=== PATIENT | male | born 1980 | race Caucasian/White ===

== ENCOUNTER 2024-04-14 14:31 | Outpatient (CLI) | payer OTHER | END 2024-04-14 14:32 | disposition home or self-care (01) | LOC: CSHRAD 14:31 | PROVIDERS: ATTEND Student in an Organized Health Care Education/Training Program | DX: J44.9 Chronic obstructive pulmonary disease, unspecified (principal) | CPT/HCPCS: 94060; 94664; 94726; 94729; 94760 ==

== ENCOUNTER 2024-07-22 09:21 | Outpatient (CLI) | payer OTHER | END 2024-07-22 09:22 | disposition home or self-care (01) | LOC: CSHCT 09:21 | PROVIDERS: ATTEND Internal Medicine | DX: G47.30 Sleep apnea, unspecified (principal); R91.1 Solitary pulmonary nodule; R91.8 Other nonspecific abnormal finding of lung field | CPT/HCPCS: 71250 ==

== ENCOUNTER 2024-07-31 08:20 | Outpatient (CLI) | payer OTHER | END 2024-07-31 08:21 | disposition home or self-care (01) | LOC: CSHLAB 08:20 | PROVIDERS: ATTEND Specialist | DX: Z01.818 Encounter for other preprocedural examination (principal); J34.2 Deviated nasal septum; J34.3 Hypertrophy of nasal turbinates; J32.4 Chronic pansinusitis | CPT/HCPCS: 93005; 93010 ==

== ENCOUNTER 2024-08-07 07:15 | Day surgery (SDC) | payer OTHER ==
[2024-07-31 08:57] VITALS: BMI 39.9
[2024-08-07] MEDS ORDERED: AFRIN NASAL MIST 15 ML BOT ONE ×2 (07:56→08:34)
[2024-08-07] MEDS ORDERED: Triple Antibiotic Oint 1 GM Packet ONE (08:34)
[2024-08-07] MEDS ORDERED: Lidocaine 1% w/Epinephrine 1:200K 30 ML VIAL ONE (08:35)
[2024-08-07] MEDS ORDERED: PROPOFOL 20 ML ONE ×2 (08:43→10:18)
[2024-08-07] MEDS ORDERED: Lidocaine 1% PF 5 ML VIAL ONE (08:43)
[2024-08-07] MEDS ORDERED: Sodium Chloride 0.9% 10 ML ONE (08:44)
[2024-08-07] MEDS ORDERED: fentaNYL 50 mcg/mL 1 mL Vial ONE ×3 (08:46→11:16)
[2024-08-07] MEDS ORDERED: Ondansetron PF 4 MG/2 ML Vial ONE (08:47)
[2024-08-07] MEDS ORDERED: Dexamethasone 20 MG/5 ML VIAL ONE (08:47)
[2024-08-07] MEDS ORDERED: HYDROcodone/Acetaminophen 5/325 mg Tablet ONE (12:11)
== END 2024-08-07 12:40 | disposition home or self-care (01) ==
LOC: CSHSDC 07:15
PROVIDERS: ATTEND Specialist
PROC: 09BM8ZZ Excision of Nasal Septum, Via Natural or Artificial Opening Endoscopic (ICD-10-PCS; principal; 2024-08-07)
DX: J34.2 Deviated nasal septum (principal); J34.3 Hypertrophy of nasal turbinates; J32.4 Chronic pansinusitis; I10 Essential (primary) hypertension; J45.909 Unspecified asthma, uncomplicated; E66.9 Obesity, unspecified; Z68.41 Body mass index [BMI] 40.0-44.9, adult; Z79.899 Other long term (current) drug therapy; Z79.51 Long term (current) use of inhaled steroids
CPT/HCPCS: J1100; J2405; J2704; J3010